=== PATIENT | male | born 1975 | race Caucasian/White ===

== ENCOUNTER 2021-08-06 16:09 | Emergency (ER) | payer OTHER ==
[2021-08-06 16:42] VITALS: BP 134/73; PULSE 99; TEMP 97.7; BMI 25.0
[2021-08-06 17:13] LABS: PH,URINE 5.5 (5.0-8.0); URINE APPEARANCE CLEAR; URINE BILIRUBIN NEGATIVE (NEGATIVE); URINE COLOR YELLOW; URINE GLUCOSE (UA) NEGATIVE (NEGATIVE); URINE KETONE NEGATIVE (NEGATIVE); URINE LEUK ESTERASE NEGATIVE (NEGATIVE); URINE NITRITE NEGATIVE (NEGATIVE); URINE PROTEIN NEGATIVE (NEGATIVE); URINE UROBILINOGEN 0.2 mg/dL (0.2-1.0)
[2021-08-06 17:47] LABS: BASO % 0.4 % (0-2.0); EOS % 1.6 % (0-4.5); HEMOGLOBIN 16.5 GM/dL (11.7-16.9); LYMPH % 24.4 % (8-40); MCH 32.9 pg (25.7-33.7); MCHC 35.1 g/dl (32.0-35.9); MEAN CELL VOLUME 93.9 fl (80-96); MEAN PLT VOLUME 8.5 fl (7.5-11.1); MONO % 7.9 % (3.8-10.2); NEUT % 65.7 % (42.8-82.8); PLATELET COUNT 224 10^3/uL (134-434); RDW 12.9 % (11.9-15.9); WHITE BLOOD COUNT 7.4 K/mm3 (4.0-10.0)
[2021-08-06 18:05] LABS: ALBUMIN 3.8 g/dl (3.4-5.0); CALCIUM 9.4 mg/dL (8.5-10.1)
[2021-08-06 18:10] LABS: BILIRUBIN,TOTAL 0.4 mg/dL (0.2-1); TOT PROT 7.2 g/dl (6.4-8.2)
== END 2021-08-06 18:15 | disposition home or self-care (01) ==
LOC: JERFT 16:09
DX: R10.30 Lower abdominal pain, unspecified (principal)
CPT/HCPCS: 36415; 80053; 81003; 85025; 87086; 87491; 87591; 99283-25

== ENCOUNTER 2021-08-22 13:04 | Emergency (ER) | payer OTHER ==
[2021-08-22 13:38] VITALS: BP 110/69; PULSE 96; TEMP 98.4; BMI 25.0
[2021-08-22] MEDS ORDERED: DIPHTH,PERTUSS(ACELL),TET 0.5 ML DISP.SYRIN IM ONE ×2 (15:12→15:17)
== END 2021-08-22 15:28 | disposition home or self-care (01) ==
LOC: JERFT 13:04
PROC: 3E0234Z Introduction of Serum, Toxoid and Vaccine into Muscle, Percutaneous Approach (ICD-10-PCS; principal; 2021-08-22)
DX: T20.10XA Burn of first degree of head, face, and neck, unspecified site, initial encounter (principal)
CPT/HCPCS: 90471; 90715; 99284-25